=== PATIENT | female | born 1960 | race Caucasian/White ===

== ENCOUNTER → 2016-06-15 | Outpatient (CLI) | payer OTHER | LOC: IMA 14:07 | PROVIDERS: ATTEND Internal Medicine | DX: Z12.31 Encounter for screening mammogram for malignant neoplasm of breast (principal); N64.59 Other signs and symptoms in breast; M85.89 Other specified disorders of bone density and structure, multiple sites; E28.319 Asymptomatic premature menopause; E28.39 Other primary ovarian failure; Z78.0 Asymptomatic menopausal state; Z82.62 Family history of osteoporosis; Z82.69 Family history of other diseases of the musculoskeletal system and connective tissue | CPT/HCPCS: 77063; 77080; G0202 ==